=== PATIENT | female | born 1960 | race Caucasian/White ===

== ENCOUNTER → 2024-08-14 16:14 | Outpatient (REF) | payer OTHER, SELFPAY | LOC: HWRAD 16:14 | DX: R50.9 Fever, unspecified (principal) | CPT/HCPCS: 71046 ==

== ENCOUNTER → 2024-08-21 15:07 | Outpatient (REF) | payer OTHER, SELFPAY | LOC: HWRAD 15:07 | PROVIDERS: ATTENDING PHYSICIAN Internal Medicine Endocrinology, Diabetes & Metabolism | DX: E04.9 Nontoxic goiter, unspecified (principal); R00.0 Tachycardia, unspecified; E05.90 Thyrotoxicosis, unspecified without thyrotoxic crisis or storm | CPT/HCPCS: 76536 ==

== ENCOUNTER → 2024-09-10 06:41 | Outpatient (REF) | payer OTHER, SELFPAY | LOC: RAD 06:41 | PROVIDERS: ATTENDING PHYSICIAN Internal Medicine Endocrinology, Diabetes & Metabolism | DX: E05.90 Thyrotoxicosis, unspecified without thyrotoxic crisis or storm (principal); E04.9 Nontoxic goiter, unspecified; R00.0 Tachycardia, unspecified | CPT/HCPCS: 78014; A9516 ==